=== PATIENT | female | born 1960 | race Caucasian/White ===

== ENCOUNTER → 2023-09-01 09:29 | Outpatient (REF) | payer MEDICARE, SELFPAY ==
[2023-09-01 11:46] LABS: Urine Albumin Trace (Neg - Trace); Urine Bilirubin 1+ (Negative); Urine Character Slightly Cloudy (Clear); Urine Color Amber; Urine Glucose Negative (Negative); Urine Ketone Negative (Negative); Urine Leukocyte 1+ (Negative); Urine Nitrite Positive (Negative); Urine Occult Blood Negative (Negative); Urine Urobilinogen Negative (Neg - 1+)
[2023-09-01 12:09] LABS: Urine Squamous Cell >30 /LPF (Few)
[2023-09-01 12:16] LABS: Urine Calcium Oxalate Crystals Present; Urine Red Blood Cell 0-2 /HPF (0-2); Urine White Cell 30-40 /HPF (0-5)
[2023-09-01 12:17] LABS: Urine Bacteria Many (Negative)
== END ==
LOC: HWLAB 09:29
PROVIDERS: ATTENDING PHYSICIAN Physician Assistant Medical
DX: Z01.818 Encounter for other preprocedural examination (principal)
CPT/HCPCS: 71046; 81003; 81015

== ENCOUNTER → 2023-11-16 11:31 | Outpatient (REF) | payer MEDICARE, SELFPAY | LOC: HWWDC 11:31 | PROVIDERS: ATTENDING PHYSICIAN Nurse Practitioner Family; FAMILY PHYSICIAN Physician Assistant Medical | DX: Z12.31 Encounter for screening mammogram for malignant neoplasm of breast (principal) | CPT/HCPCS: 77063; 77067 ==

== ENCOUNTER → 2024-03-08 10:44 | Outpatient (REF) | payer MEDICARE, SELFPAY | LOC: HWRAD 10:44 | PROVIDERS: ATTENDING PHYSICIAN Nurse Practitioner Family; FAMILY PHYSICIAN Physician Assistant Medical | DX: Z78.0 Asymptomatic menopausal state (principal) | CPT/HCPCS: 77080 ==

== ENCOUNTER 2024-05-06 18:09 | Emergency (ER) | payer MEDICARE, SELFPAY ==
[2024-05-06] VITALS (21 sets, daily range): BP systolic 134–185; BP diastolic 79–121; BMI 32.9
[2024-05-06] MEDS: DILAUDID 1 MG IV (19:29)
--- NOTE | 2024-05-06 21:16 | ED.GENMED ---
History of Present Illness
General
Chief Complaint: Musculo-Skeletal Complaint
Time Seen by Provider: 05/06/24 19:12
History of Present Illness
History of Present Illness:
63-year-old female with history artificial right hip about 6 years ago presenting for concern of hip dislocation. Patient reports prior to arrival she was bending forward, believes that she was in a twisted position and her right hip dislocated.
Notes that this happened to her several months ago as well. Denies numbness or tingling to her leg. She received ketamine prior to arrival by medics. Denies additional injury or issue from prior events. Denies any fall. Denies fever or systemic
symptoms. Denies additional acute medical complaints
Past History
Past History
ED Past Medical History: GERD and Other (Diagnosed with kidney stone, diverticulosis, arthritis)
ED Past Surgical History: Other (Colonoscopy)
Social History
Tobacco: Non-smoker
Alcohol: None
Drug: None
Personal:
Living: with family
Employment: Employed
Family History
Family History: CAD
Phy Exam
Physical Exam
Physical Exam:
General: Well-appearing, no clinical signs of dehydration, nontoxic and in no acute distress
HEENT: protecting airway
Neck: appears supple
CV: Normal heart rate, regular rhythm, no evidence of cyanosis
Resp: No accessory muscle use, no increased work of breathing
Abd: no distension
Extremities: Obvious deformity to the right lower extremity, internally rotated, shortened.
Neuro: alert, no focal neurologic deficit
: deferred
Rectal: deferred
Psych: Normal affect
Skin: Intact
Course
Orders/Labs/Results
Orders:
Orders
05/06/24 19:26
HYDROmorphone [Dilaudid] 1 mg IV NOW STA
Hip, Right 2-3 Views [CR Hip - RT w/wo Pel 2-3 Vw*] Urgent
Comment:
Reason For Exam: dislocation
Include a pelvis x-ray?: Yes
05/06/24 19:54
Propofol [Diprivan] 20 ml .ROUTE .STK-MED
05/06/24 20:38
CR Hip - RT without Pel 1 Vw Stat
Comment:
Reason For Exam: post hip reduction
05/06/24 20:57
CR Hip - RT without Pel 1 Vw Stat
Comment:
Reason For Exam: post hip reduction
Vital Signs
Initial and Last Documented VS:
Initial Vital Signs
Temp Pulse Resp BP Pulse Ox
98.6 F 90 22 176/111 96
05/06/24 18:19 05/06/24 18:19 05/06/24 18:19 05/06/24 18:19 05/06/24 18:19
Last Documented Vital Signs
Temp Pulse Resp BP Pulse Ox
98.4 F 93 21 136/81 99
05/06/24 21:40 05/06/24 21:40 05/06/24 21:40 05/06/24 21:40 05/06/24 21:40
Procedures
Moderate Sedation
ASA Risk Score: Class II
Chart and allergies reviewed: Yes
Consent for anesthesia obtained: Yes
Time out completed (validating right patient & procedure): Yes
Moderate Sedation Start Time(when first medication is given): 20:35
History of difficult intubation: No
Airway free of obstruction: Yes
Patient has a gag reflex: Yes
Patient is able to open mouth: Yes
Patient has no dentures: Yes
Patient has no loose teeth: Yes
Medication administered by Provider during Moderate Sedation: IV Propofol (mg)
Total dose administered: 170
Time drug administered: 20:35
Moderate Sedation Procedure End Time: 21:10
Joint/Fracture Reduction
Right Hip:
Indication for procedure:: right hip dislocation
Procedure completed by: Sara Ríos DO, and Rad CLARKE
Consent form signed: Yes
Joint reduced: with anesthesia sedation
Anesthesia/sedation: Moderate sedation
Injury was: closed
Further treatement: no treatment needed
Post reduction exam: stable
Capillary Refill: normal
Normal distal neurovascular exam?: Yes
MDM/Problems Addressed
MDM/Problems Addressed:
63-year-old female with history of right hip replacement with prior dislocation presenting for concern of hip dislocation. Vital signs are significant for hypertension, however patient is in pain.
On exam, obvious deformity to the right hip. No neurovascular compromise. Will confirm with x-ray imaging.
21:40 - right hip dislocated, no fracture. Patient consented and procedure performed. No complications, however did require 2 attempts. Neurovascularly intact on reassessment. Patient notes that this is her second hip dislocation within a year.
For this reason advise following up with orthopedic doctor for reassessment. Patient remained stable off of moderate sedation. Feel stable for discharge. Return precautions discussed and patient verbalized understanding
*Critical Care Note
Total Time (30-74mins, 75-104mins- exclusive of procedures): Not Applicable
ED Attending Note
-
Portions of this chart may have been created with voice recognition software.� Occasional wrong word or��sound alike� substitutions may have occurred due to the inherent limitations of voice recognition software.
Discharge Plan
Departure
Patient Disposition: Home (Routine Discharge)
Date of Disposition: 05/06/24
Time of Disposition: 21:52
Patient with high blood pressure during this ER visit?: Yes
Condition: Good
Discharge Problem:
Dislocation of right hip
Instructions: Hip Dislocation (DC), MODERATE SEDATION ADULT, BLOOD PRESSURE
Prescriptions:
No Action
Lactobacillus rhamnosus GG 1 EACH capsule
1 tab PO DAILY
zolpidem 5 MG tablet
12.5 mg PO HS
Vitamin D
4,000 units PO DAILY
Arthritis Extended Relief
1 tab PO DAILY
ezetimibe 10 MG tablet
10 mg PO DAILY
mirabegron [Myrbetriq] 25 MG tablet extended release 24 hr
50 mg PO DAILY
digestive 8-L.acidoph-pectin [Digestive Enzyme (acidoph,pec)] 1 EACH tablet
1 tab PO QPM
Caltrate Tablets
2 tab PO QPM
Fiber Capsules
2 cap PO BID
cyanocobalamin (vitamin B-12) 1,000 MCG tablet
1,000 mcg PO DAILY
famotidine 20 MG tablet
20 mg PO QPM
omeprazole [Prilosec] 10 MG capsule,delayed release(DR/EC)
40 mg PO DAILY
escitalopram oxalate 5 MG tablet
15 mg PO HS
solifenacin 5 MG tablet
10 mg PO QPM
ascorbic acid (vitamin C) [Vitamin C] 500 MG tablet
2,000 mg PO DAILY
prednisone 1 MG tablet
2 mg PO DAILY
multivitamin with folic acid [Tab-A-María] 1 TABLET tablet
1 tab PO DAILY
mupirocin 1 APPLIC ointment
1 applic intranasal BID Qty: 1 0RF
Patient Comments:
Patient started this treatment on 03/05/2020 and administered 2 doses that day. Patient administered this medication this morning 03/07/2020 at 0430.
sennosides [senna] 1 TABLET tablet
2 tab PO BID 0RF
aspirin 325 MG tablet
325 mg PO DAILY 0RF
magnesium hydroxide 30 ML suspension
30 ml PO HS 0RF
Rx Instructions:
take nightly until BM
docusate sodium 100 MG capsule
100 mg PO BID 0RF
diazepam 5 MG tablet
5 mg PO HS Qty: 7 0RF
Rx Instructions:
do not take with Ambien
acetaminophen 325 MG tablet
650 mg PO QID Qty: 60 0RF
nabumetone 500 MG tablet
500 mg PO DAILY Qty: 0 0RF
Rx Instructions:
TAKE WITH FOOD
SPACE OUT 2 HOURS FROM ASPIRIN
coenzyme Q10 100 MG capsule
100 mg PO QPM Qty: 0 0RF
Rx Instructions:
RESUME 7 DAYS POST-OP
omega 7-kfs-iri-fish oil [[place]-3 Fish Oil] 1 EACH capsule
1,400 mg PO QPM Qty: 0 0RF
Rx Instructions:
RESUME 7 DAYS POST-OP
tramadol 50 MG tablet
50 mg PO Q6HPRN PRN (Reason: moderate-severe breakthru pain) Qty: 50 0RF
Rx Instructions:
Dx joint replacement
ongoing therapy
Referrals:
Odilia Matute PA-C [Family Provider] -
Teddy Childress MD [Active] -
Activity Restrictions/Additional Instructions:
You were seen in the emergency department for hip dislocation today
You were found to have a dislocated hip that was relocated.
Please follow-up closely with your orthopedic doctor
Return to the emergency department for any worsening of your symptoms, or any development of chest pain, difficulty breathing, abdominal pain with persistent vomiting and inability to tolerate food or liquid by mouth (concern for dehydration),
weakness, headache or confusion, fever greater than 100.4, or any additional symptoms that are concerning to you.
Thank you for choosing [facility].
Interventions
Interventions:
*Risk Screen - Suicide Last Done: 05/06/24 18:19
*General Assessment Last Done: 05/06/24 18:19
*Neglect/Abuse Screening Last Done: 05/06/24 18:19
*ED COVID-19 Vaccine History Last Done: 05/06/24 18:19
ED-Musculoskeletal Assessment Last Done: 05/06/24 18:19
Discharge Date and Time
Print Language: URDU
== END 2024-05-06 22:16 | disposition home or self-care (01) ==
LOC: EMR 18:09
PROVIDERS: EMERGENCY PHYSICIAN Student in an Organized Health Care Education/Training Program; FAMILY PHYSICIAN Physician Assistant Medical
DX: T84.020A Dislocation of internal right hip prosthesis, initial encounter (principal); X58.XXXA Exposure to other specified factors, initial encounter; K21.9 Gastro-esophageal reflux disease without esophagitis
CPT/HCPCS: 27265; 99152; 96374; 99285; 73501; 73502

== ENCOUNTER → 2024-06-22 12:47 | Outpatient (REF) | payer MEDICARE, SELFPAY | LOC: HWRAD 12:47 | PROVIDERS: ATTENDING PHYSICIAN Orthopaedic Surgery; FAMILY PHYSICIAN Physician Assistant Medical | DX: Z96.641 Presence of right artificial hip joint (principal) | CPT/HCPCS: 73700 ==

== ENCOUNTER 2024-11-17 00:34 | Emergency (ER) | payer MEDICARE, SELFPAY ==
[2024-11-17] VITALS (8 sets, daily range): BP systolic 126–147; BP diastolic 75–92; BMI 33.2
--- NOTE | 2024-11-17 01:05 | ED.GENMED ---
History of Present Illness
General
Chief Complaint: Dizziness
Source: patient, ambulance crew and previous hospital records
Exam Limitations: none
Time Seen by Provider: 11/17/24 00:49
Nursing documentation reviewed up to this point in time: agreed with
History of Present Illness
History of Present Illness:
This is a 64-year-old woman who resides at home, alone after her this past winter. She has history of hypertension, hyperlipidemia, migraine headaches and longstanding history of vertigo/M�ni�re's disease. She follows with
[facility] and admits to recurrent severe episodes of vertigo that began in July of this year while she was in [place] arranging to sell her custodial home. Required ED visit at that time but did not require hospitalization. She has since been
following with Dr. Caldwell for has been maintained on daily prednisone for the past 10 years, generally at maintenance dose of 10 mg a day but since July has been on higher dose, currently at 30 mg daily over the past 2 months with recurrent/daily
episodes of severe vertigo which she states generally lasts anywhere from 2 to 12 hours. She notes mild episodes of vertigo generally resolve with an oral dose of Zofran. She has been prescribed Valium in the past which she uses rarely.
Occasional severe episodes of vertigo generally resolve with tincture of time and with lying still. She admits to chronic daily headaches, unchanged.
She reports previous unremarkable neuroimaging including CTs of the head and MRI. She has had no success with physical therapy/vestibular training in the past.
She denies weakness nor numbness, no neck or back pain, no chest pain, no palpitations, no abdominal pain, no diarrhea or constipation.
She has a follow-up appointment scheduled with Dr. Washburn later today, November 17.
She states tonight around 10:15 PM she developed sudden onset of severe dizziness described as the room spinning. No fall no loss of consciousness. Dizziness accompanied with nausea, dry heaves.
She admits that symptoms seem worse since July and since the of her . She is now alone at home, does not have help when her vertigo presents.
She arrives via EMS, was given 4 mg of IV Zofran as well as small bolus of IV fluids. Thus far no improvement.
Past History
Past History
ED Past Medical History: GERD, HTN, Hypercholesterolemia and Other (Diagnosed with kidney stone, diverticulosis, arthritis; chronic vertigo/M�ni�re's disease, migraine headaches)
ED Past Surgical History: Cholecystectomy, Gynecological, Orthopedic (Bilateral hip replacements, bilateral knee replacements; cervical spine fusion), Tonsilectomy and Other (Colonoscopy)
Social History
Tobacco: Non-smoker
Alcohol: None
Drug: None
Personal:
Living: alone
Employment: Retired
Family History
Family History: CAD
Phy Exam
Physical Exam
Physical Exam:
GENERAL: 64-year-old woman appears her stated age, awake and alert, mildly anxious, intermittently tearful, preferentially maintaining eyes closed. Holding emesis bag at the ready.
EYE: Mild bilateral rotatory nystagmus, pupils equal and reactive. anicteric
NECK: Supple, nontender, no meningismus, no significant adenopathy.
ENT: posterior pharynx is clear, oral mucosa is minimally mildly dry. TM clear b/l, nares patent.
CARDIAC: Regular rate and rhythm. no murmur.
LUNGS: Clear breath sounds bilaterally, no acute respiratory distress, no wheezes/rales/rhonchi
ABDOMEN: Soft, nondistended, without focal tenderness, no r/g, no cvat. normoactive BS.
NEUROLOGICAL: Alert and oriented x3, bilateral rotatory nystagmus noted. Motor strength 5/5 bilaterally. Gross sensation is intact.
SKIN: Warm and dry, normal color, skin intact. No rash.
MUSCULOSKELETAL: No C/C/E. peripheral pulses are full and equal b/l. No palpable tenderness.
PSYCH: Normal and appropriate interaction.
Course
Orders/Labs/Results
Orders:
Orders
11/17/24 01:04
0.9% Sodium Chloride 1000 ml [Nss] 1,000 ml IV BOLUS
diazePAM [Valium Injection] 2 mg IV NOW STA
11/17/24 01:39
Complete Blood Count/With Diff Urgent
Comprehensive Metabolic Panel Urgent
11/17/24 02:44
Potassium Chloride [KCl] 40 meq PO NOW STA
diazePAM [Valium Injection] 2 mg IV NOW STA
11/17/24 02:46
0.9% Sodium Chloride 500 ml [Nss] 500 ml IV BOLUS
Abnormal Lab Results
11/17/24
01:39
MCH 32.4 H pg
(27.0-31.0)
MPV 10.5 H fL
(7.4-10.4)
Abs Immat Gran (auto) 0.1 H 10^3/uL
(0-0.05)
Absolute Neuts (auto) 6.9 H 10^3/uL
(1.4-6.5)
Absolute Lymphs (auto) 1.1 L 10^3/uL
(1.2-3.4)
Immature Gran % 1.2 H %
(0-0.5)
Neutrophils % 79.9 H %
(42.2-75.2)
Lymphocytes % 12.9 L %
(20.5-51.1)
Potassium 3.1 L mmol/L
(3.5-5.1)
Carbon Dioxide 33 H mmol/L
(22-30)
BUN 26 H mg/dl
(7-17)
Total Protein 5.7 L g/dl
(6.3-8.2)
11/17/24 01:39
11/17/24 01:39
Vital Signs
Initial and Last Documented VS:
Initial Vital Signs
Temp Pulse Resp BP Pulse Ox
97.7 F 61 20 147/82 98
11/17/24 00:58 11/17/24 00:58 11/17/24 00:58 11/17/24 00:58 11/17/24 00:58
Last Documented Vital Signs
Temp Pulse Resp BP Pulse Ox
97.7 F 84 16 127/79 97
11/17/24 00:58 11/17/24 07:09 11/17/24 07:09 11/17/24 07:03 11/17/24 07:04
MDM/Problems Addressed
Differential Diagnosis Includes:
Patient with longstanding history of vertigo, M�ni�re's disease presents with acute exacerbation accompanied with nausea, dry heaves.
Admits to significant recurrent episodes of vertigo on a near daily basis over the past several months.
Concern for exacerbation of vertigo/M�ni�re's disease. Other consideration is vertebrobasilar insufficiency.
Prior MRI of the brain with and without contrast December 2016 unremarkable and unchanged from previous MRI 2008.
Due to recurrent episodes of vertigo, nausea and vomiting on a near daily basis since July, concern for electrolyte abnormality, dehydration thus will check labs.
Will initiate IV fluids and give an IV dose of Valium.
Consider imaging/CT of the head if ineffective.
Chronic conditions affecting care: HTN and Neurological disorder (Chronic vertigo/M�ni�re's disease)
*Pulse Oximetry
Patient hypoxic: no
*Critical Care Note
Total Time (30-74mins, 75-104mins- exclusive of procedures): Not Applicable
Update Note
Update Note:
02:45
Patient is markedly improved with resolution of nystagmus.
Vertigo has near completely resolved but continues most noted with change in position, rotation of her head. Nausea has resolved.
Labs reveal mild hypokalemia at 3.1, mild prerenal azotemia with BUN of 26, normal creatinine 0.7.
Will continue IV fluids, give an additional IV dose of Valium and will replete potassium orally.
05:00
Patient continues to appear well. Dizziness has near completely resolved with only mild vertiginous symptoms with moving about but no return of nausea.
Will plan to discharge to home with recommendation for prompt follow-up with her ENT specialist, Dr. Washburn.
ED Attending Note
-
Portions of this chart may have been created with voice recognition software.� Occasional wrong word or��sound alike� substitutions may have occurred due to the inherent limitations of voice recognition software.
Discharge Plan
Departure
Patient Disposition: Home (Routine Discharge)
Date of Disposition: 11/17/24
Time of Disposition: 05:59
Patient with high blood pressure during this ER visit?: No
Condition: Good
Discharge Problem:
acute exacerbation of vertigo
Instructions: Meniere disease
Prescriptions:
No Action
zolpidem 5 MG tablet
12.5 mg PO HS
Arthritis Extended Relief
1 tab PO DAILY
ezetimibe 10 MG tablet
10 mg PO DAILY
mirabegron [Myrbetriq] 25 MG tablet extended release 24 hr
50 mg PO DAILY
Digestive Enzyme (acidoph,pec) 1 EACH tablet
1 tab PO QPM
Fiber Capsules
4 cap PO BID
omeprazole [Prilosec] 10 MG capsule,delayed release(DR/EC)
40 mg PO DAILY
escitalopram oxalate 5 MG tablet
15 mg PO HS
solifenacin 5 MG tablet
10 mg PO QPM
prednisone 1 MG tablet
2 mg PO DAILY
multivitamin with folic acid [Tab-A-María] 1 TABLET tablet
1 tab PO DAILY
docusate sodium 100 MG capsule
100 mg PO BID 0RF
aspirin 325 MG tablet
81 mg PO DAILY
diazepam 5 MG tablet
5 mg PO HS PRN (Reason: Reduction Of Transepidermal Water Loss)
Rx Instructions:
do not take with Ambien
Dyazide
PO DAILY
Referrals:
Odilia Matute PA-C [Family Provider] -
Joaquín Washburn MD [Active] - Next open appointment
Interventions
Interventions:
*Risk Screen - Suicide Last Done: 11/17/24 00:35
*General Assessment Last Done: 11/17/24 01:15
*Neglect/Abuse Screening Last Done: 11/17/24 00:35
*ED- Fall Risk Assessment Last Done: 11/17/24 01:17
*ED COVID-19 Vaccine History Last Done: 11/17/24 01:17
ED- Neurological Assessment Last Done: 11/17/24 01:34
ED- Cardiac Assessment Last Done: 11/17/24 01:34
ED Swallowing Screen Last Done: 11/17/24 01:34
Discharge Date and Time
Print Language: EQUATORIAL GUINEAN
[2024-11-17] MEDS: VALIUM INJECTION 2 MG IV ×2 (01:13→02:54)
[2024-11-17] MEDS: NSS 1000 IV (01:14)
[2024-11-17 01:51] LABS: % Eosinophils 0.1 % (0-6); % Immature Granulocytes 1.2 % (0-0.5); % Lymphocytes 12.9 % (20.5-51.1); % Monocytes 5.9 % (1.7-9.3); % Neutrophils 79.9 % (42.2-75.2); Absolute Immature Granulocytes 0.1 10^3/uL (0-0.05); Absolute Lymphocytes 1.1 10^3/uL (1.2-3.4); Absolute Monocytes 0.5 10^3/uL (0.1-0.6); Absolute Neutrophils 6.9 10^3/uL (1.4-6.5); Hematocrit 41.4 % (37.0-47.0); Hemoglobin 14.7 g/dL (12.0-16.0); Mean Corp Hgb Conc. 35.5 g/dL (33.0-37.0); Mean Corpuscular Hgb 32.4 pg (27.0-31.0); Mean Corpuscular Volume 91.2 fL (81.0-99.0); Mean Platelet Volume 10.5 fL (7.4-10.4); Nucleated Red Blood Cells % 0 %; Platelet Count 187 10^3/uL (130-400); Red Blood Cell Count 4.54 10^6/uL (4.20-5.40); Red Cell Dist. Width 13.3 % (11.5-14.5); White Blood Cell Count 8.7 10^3/uL (4.8-10.8)
[2024-11-17 02:16] LABS: ALT (SGPT) 18 U/L (0-35); AST (SGOT) 17 U/L (14-36); Albumin 3.6 g/dl (3.5-5.0); Alkaline Phosphatase 64 U/L (38-126); Blood Urea Nitrogen 26 mg/dl (7-17); Calcium 9.4 mg/dl (8.4-10.2); Carbon Dioxide 33 mmol/L (22-30); Chloride 105 mmol/L (98-107); Estimated Creatinine Clearance 100 ml/min; Glucose 92 mg/dl (70-99); Potassium 3.1 mmol/L (3.5-5.1); Sodium 141 mmol/L (135-145); Total Bilirubin 0.8 mg/dl (0.2-1.3); Total Protein 5.7 g/dl (6.3-8.2); eGFR > 60.00
[2024-11-17] MEDS: KCL 40 MEQ PO (02:54)
[2024-11-17] MEDS: NSS 500 IV (02:55)
== END 2024-11-17 07:19 | disposition home or self-care (01) ==
LOC: EMR 00:34
PROVIDERS: EMERGENCY PHYSICIAN Emergency Medicine; FAMILY PHYSICIAN Physician Assistant Medical
DX: R42 Dizziness and giddiness (principal); E78.00 Pure hypercholesterolemia, unspecified; I10 Essential (primary) hypertension; Z90.49 Acquired absence of other specified parts of digestive tract; E87.6 Hypokalemia
CPT/HCPCS: 96374; 96375; 96361; 99284; 80053; 85025

== ENCOUNTER → 2024-12-01 07:53 | Outpatient (REF) | payer MEDICARE, SELFPAY | LOC: HWWDC 07:53 | PROVIDERS: ATTENDING PHYSICIAN Nurse Practitioner Family; FAMILY PHYSICIAN Physician Assistant Medical | DX: Z12.31 Encounter for screening mammogram for malignant neoplasm of breast (principal) | CPT/HCPCS: 77063; 77067 ==